=== PATIENT | male | born 1970 | race Caucasian/White ===

== ENCOUNTER 2022-03-21 08:58 | Outpatient (CLI) | payer BC, SELFPAY | END 2022-03-21 08:59 | disposition home or self-care (01) | LOC: OP CLINIC 08:59 | PROVIDERS: PCP Family Medicine; Visit Provider Surgery | DX: Z12.11 Encounter for screening for malignant neoplasm of colon (principal); K63.5 Polyp of colon; K57.30 Diverticulosis of large intestine without perforation or abscess without bleeding | CPT/HCPCS: 45380; 88305; 99153; J2250; J3010 ==

== ENCOUNTER 2023-07-06 11:49 | Outpatient (CLI) | payer BC, SELFPAY | END 2023-07-06 11:50 | disposition home or self-care (01) | PROVIDERS: PCP Family Medicine; Visit Provider Family Medicine | DX: I10 Essential (primary) hypertension (principal); Z12.5 Encounter for screening for malignant neoplasm of prostate; Z13.6 Encounter for screening for cardiovascular disorders | CPT/HCPCS: 80048; 80061; G0103 ==

== ENCOUNTER 2025-04-24 11:25 | Outpatient (CLI) | payer BC, SELFPAY | END 2025-04-24 11:26 | disposition home or self-care (01) | PROVIDERS: PCP Family Medicine; Visit Provider Family Medicine | DX: Z13.9 Encounter for screening, unspecified (principal); I10 Essential (primary) hypertension | CPT/HCPCS: 80048; 80061; G0103 ==